=== PATIENT | female | born 1940 | race Caucasian/White ===

== ENCOUNTER → 2016-07-12 | Outpatient (CLI) | payer BC, MEDICARE ==
--- NOTE | 2016-07-12 10:43 | ECHOF ---
Referral Reason:R07.9 chest pain R06.02 sob MEASUREMENTS -------- HEIGHT: 157.5 cm WEIGHT: 70.8 kg BP: 127/80 RVIDd: 2.7 cm (< 3.3) IVSd: 1.0 cm (0.6 - 1.1) LVIDd: 4.3 cm (3.9 - 5.3) LVPWd: 0.7 cm (0.6 - 1.1) IVSs: 1.2 cm LVIDs: 2.8 cm LVPWs: 1.4 cm LAESV Index (A-L): 20.87 ml/m Ao Diam: 2.6 cm (2.0 - 3.7) AV Cusp: 1.7 cm (1.5 - 2.6) LA Diam: 2.8 cm (2.7 - 3.8) MV EXCURSION: 14.577 mm (> 18.000) MV EF SLOPE: 79 mm/s (70 - 150) EPSS: 0.5 cm MV E Sam: 0.52 m/s MV DecT: 281 ms MV A Sam: 0.83 m/s MV E/A Ratio: 0.62 RAP: 5.00 mmHg RVSP: 26.73 mmHg FINDINGS -------- Sinus rhythm. This was a technically adequate study. There is mild concentric left ventricular hypertrophy. Overall left ventricular systolic function is normal with, an EF between 55 - 60 %. The right ventricle is normal in size. Normal LA size by volume 22+/-6 ml/m2. The right atrial size is normal. There is mild aortic valve sclerosis. There is no evidence of aortic regurgitation. Mild mitral annular calcification present. Mild mitral regurgitation is present. Mild tricuspid regurgitation present. There is no evidence of pulmonary hypertension. The right ventricular systolic pressure, as measured by Doppler, is 26.73mmHg. There is no pulmonic regurgitation present. The aortic root size is normal. There is no pericardial effusion. CONCLUSIONS -------- 1. There is mild concentric left ventricular hypertrophy. 2. Overall left ventricular systolic function is normal with, an EF between 55 - 60 %. 3. There is mild aortic valve sclerosis. 4. Mild mitral annular calcification present. 5. Mild mitral regurgitation is present. 6. Mild tricuspid regurgitation present. 7. There is no evidence of pulmonary hypertension. 8. The right ventricular systolic pressure, as measured by Doppler, is 26.73mmHg. 9. There is no pericardial effusion. FACEPIECE LINE SUPERVISOR: Latoya Noonan RDCS
--- NOTE | 2016-07-12 11:21 | EST ---
DATE OF SERVICE: 07/12/2016 AGE: 75Y SEX: F HT: 5'2" WT: 156 lbs. Protocol Mike: X Other: Stress Stage: 1 Dur. of Exercise: 3:00 *Heart Rate Blood Pressure *Rest: 75 Rest: 154/78 * *Max. Achieved: 130 Maximum BP: 173/68 85% PMHR: 122 100% PMHR: 144 *METS: 4.6 INDICATIONS: Chest pain. MEDICATIONS: Metformin, atorvastatin, Glipizide, aspirin. Baseline EKG revealed normal sinus rhythm without significant ST-T changes. There was some poor R-wave progression over precordial leads. Patient walked on standard Mike protocol for 3 minutes, achieved a maximum heart rate of 130 beats per minute. Developed fatigue and shortness of breath and therefore stress test was stopped. There was a lot of artifact, but there was no evidence of any ST segment changes to indicate ischemia. By EKG criteria, this is a negative stress test with very limited exercise capacity. The nuclear scans, which are more pertinent, will be reported by radiologist.
--- NOTE | 2016-07-12 11:46 | NM ---
EXAMINATION TYPE: NM stress cardiolite complete DATE OF EXAM: 07/12/2016 11:32 AM COMPARISON: NONE HISTORY: Precordial chest pain TECHNIQUE: After the intravenous administration of 11.0 mCi Tc 99m Sestamibi - Rest images obtained 45 minutes post injection. The patient exercised using a JIGNA protocol and 1 minute prior to peak exercise was injected with 27.0 mCi Tc 99m Sestamibi - Stress images obtained 10 minutes post injecti on. FINDINGS: Targeted heart rate was achieved during performance of the study. Review of stress and rest SPECT anton ges demonstrates no distinct perfusion abnormality. Gated analysis shows normal wall motion with an estimated left ventricular ejection fraction of 39 %. IMPRESSION: No scintigraphic evidence for reversible ischemia
== END | disposition home or self-care (01) ==
LOC: RADNMMAIN 09:00
PROVIDERS: ATTEND Family Medicine
DX: R06.02 Shortness of breath (principal); R07.9 Chest pain, unspecified
CPT/HCPCS: 93017; 93306; 78452; A9500

== ENCOUNTER → 2022-04-06 | Outpatient (CLI) | payer OTHER, MEDICARE ==
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
== END | disposition home or self-care (01) ==
LOC: RADBDWWP 07:50
PROVIDERS: ATTEND Family Medicine
DX: Z13.820 Encounter for screening for osteoporosis (principal); M85.89 Other specified disorders of bone density and structure, multiple sites; Z78.0 Asymptomatic menopausal state
CPT/HCPCS: 77080

== ENCOUNTER 2022-10-31 07:23 | Inpatient (IN) | payer OTHER, MEDICARE ==
[2022-10-31] MEDS ORDERED: NALOXONE 0.4 MG/ML 1 ML VIAL IV PRN (08:22)
[2022-10-31] MEDS ORDERED: ACETAMINOPHEN TAB 325 MG TAB PO PRN (08:23)
[2022-10-31] MEDS ORDERED: HYDROcodone/APAP 5-325MG 1 EACH TAB PO PRN (08:23)
[2022-10-31] MEDS ORDERED: MORPHINE SULFATE 4 MG/ML SYRINGE IV PRN (08:23)
[2022-10-31] MEDS ORDERED: traMADol 50 MG TAB PO PRN (08:23)
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
[2022-10-31] MEDS ORDERED: DEXTROSE 50% SYRINGE 50 ML IVP PRN ×4 (08:37→11:38)
--- NOTE | 2022-10-31 09:15 | CT ---
EXAMINATION TYPE: CT lumbar spine wo con DATE OF EXAM: 10/31/2022 COMPARISON: Outside CT 09/26/2022 HISTORY: LUMBAR PAIN CT DLP: [address] of the lumbar spine was performed. Bone and soft tissue window settings are submitted as well as coronal and sagittal reconstructions. L1-L2: There is an acute superior endplate compression fracture of L1 with loss of height estimated a t 10-15%. There is a small paraspinal hematoma. 3 mm bony retropulsion noted. No involvement of the m iddle or posterior column. Moderate degenerative disc space narrowing. No disc herniation or central stenosis present. L2-L3: There is evidence of vacuum disc. Posterior disc bulge with mild effacement of ventral thecal sac. No evidence for central stenosis. Bilateral lateral recess stenosis is difficult to exclude. Fac et joint arthropathy with mild foraminal encroachment. L3-L4: Mild degenerative disc space narrowing. No significant disc bulge or herniation. No central st enosis. Mild facet joint arthropathy. No foraminal encroachment. L4-L5: Severe degenerative disc space narrowing and vacuum disks. Moderate broad-based posterior disc bulge greatest posterocentrally and to the left. There is resultant moderate central stenosis. There is hypertrophy of the ligamentum flavum and facet joint arthropathy. L5-S1: Moderate degenerative disc space narrowing. Posterior central disc bulge. Mild effacement vent ral thecal sac. Left lateral recess stenosis difficult to exclude. Moderate left foraminal encroachme nt. No significant right-sided foraminal encroachment. No paraspinal masses are identified. IMPRESSION: 1. Acute superior endplate compression fracture as discussed involving L1. 2. Multilevel degenerative disc disease. Moderate central stenosis at L4-5.
[2022-10-31 10:18] LABS: Basophils % (A) 0 %; Eosinophils # (A) 0.1 k/uL (0-0.7); Eosinophils % (A) 2 %; HCT 46.8 % (34.0-46.0); HGB 14.8 gm/dL (11.4-16.0); Lymphocytes # (A) 1.4 k/uL (1.0-4.8); Lymphocytes % (A) 20 %; MCH 32.3 pg (25.0-35.0); MCHC 31.6 g/dL (31.0-37.0); MCV 102.3 fL (80.0-100.0); Macrocytosis Slight; Mean Platelet Volume 8.3; Monocytes # (A) 0.4 k/uL (0-1.0); Monocytes % (A) 5 %; Neutrophils % (A) 72 %; Platelet Count 196 k/uL (150-450); RBC 4.57 m/uL (3.80-5.40); RDW 13.6 % (11.5-15.5)
[2022-10-31 10:32] LABS: ALT 15 U/L (4-34); AST 21 U/L (14-36); African American GFR (CKD) 78 (>60 ml/min/1.73 sqM); Albumin 4.1 g/dL (3.5-5.0); Alkaline Phosphatase 112 U/L (38-126); Anion Gap 12 mmol/L; Blood Urea Nitrogen 10 mg/dL (7-17); Calcium 9.3 mg/dL (8.4-10.2); Carbon Dioxide 23 mmol/L (22-30); Chloride 104 mmol/L (98-107); Glucose 145 mg/dL (74-99); Non-African American GFR(CKD) 68 (>60 ml/min/1.73 sqM); Potassium 4.3 mmol/L (3.5-5.1); Sodium 139 mmol/L (137-145); Total Bilirubin 0.6 mg/dL (0.2-1.3); Total Protein 7.2 g/dL (6.3-8.2)
--- NOTE | 2022-10-31 11:41 | P.CONS ---
History of Present Illness - Reason for Consult Preoperative clearance - History of Present Illness Patient underwent 82-year-old female I is being admitted for elective back surgery. Patient doesn't have any significant cardiac history doesn't have any history of CHF presently doesn't have any chest pain EKG did not show any significant ST-T wave changes. Patient only medical problems are diabetes aisha itus, hypertension and hyperlipidemia. REVIEW OF SYSTEMS: CONSTITUTIONAL: No fever, no malaise, no fatigue. HEENT: No recent visual problems or hearing problems. Denied any sore throat. CARDIOVASCULAR: No chest pain, orthopnea, PND, no palpitations, no syncope. PULMONARY: No shortness of breath, no cough, no hemoptysis. GASTROINTESTINAL: No diarrhea, no nausea, no vomiting, no abdominal pain. NEUROLOGICAL: No headaches, no weakness, no numbness. HEMATOLOGICAL: Denies any bleeding or petechiae. GENITOURINARY: Denies any burning micturition, frequency, or urgency. MUSCULOSKELETAL/RHEUMATOLOGICAL: Denies any joint pain, swelling, or any muscle pain. ENDOCRINE: Denies any polyuria or polydipsia. The rest of the 14-point review of systems is negative. PHYSICAL EXAMINATION: GENERAL: The patient is alert and oriented x3, not in any acute distress. Well developed, well nourished. HEENT: Pupils are round and equally reacting to light. EOMI. No scleral icterus. No conjunctival pallor. Normocephalic, atraumatic. No pharyngeal erythema. No thyromegaly. CARDIOVASCULAR: S1 and S2 present. No murmurs, rubs, or gallops. PULMONARY: Chest is clear to auscultation, no wheezing or crackles. ABDOMEN: Soft, nontender, nondistended, normoactive bowel sounds. No palpable organomegaly. MUSCULOSKELETAL: Deferred to orthopedic surgery EXTREMITIES: No cyanosis, clubbing, or pedal edema. NEUROLOGICAL: Gross neurological examination did not reveal any focal deficits. SKIN: No rashes. Assessment and plan Preoperative clearance: Patient is low operative risk for lumbar fusion surgery. Considering her age avoid opiates, benzodiazepines barbiturates and anticholinergic medications in the perioperative and postoperative period -Hyperlipidemia: Resume on statin next Type 2 diabetes mellitus: Sliding scale insulin hold off oral hypoglycemic agents -Hypertension: Hold off on lisinopril to avoid perioperative hypotension DVT prophylaxis: As per primary service Past Medical History Past Medical History: Cancer, Diabetes Mellitus History of Any Multi-Drug Resistant Organisms: None Reported Past Surgical History: Bowel Resection Past Psychological History: No Psychological Hx Reported Smoking Status: Never smoker Past Alcohol Use History: None Reported Past Drug Use History: None Reported Medications and Allergies Home Medications Medication Instructions Recorded Confirmed Type Atorvastatin [Lipitor] 40 mg PO HS 10/31/22 10/31/22 History Famotidine [Pepcid] 20 mg PO BID 10/31/22 10/31/22 History HYDROcodone/APAP 5-325MG [[place] 1 tab PO Q6H PRN 10/31/22 10/31/22 History 5-325] Pioglitazone [Actos] 15 mg PO DAILY 10/31/22 10/31/22 History glipiZIDE XL [Glucotrol Xl] 5 mg PO BID 10/31/22 10/31/22 History lisinopriL [Zestril] 10 mg PO DAILY 10/31/22 10/31/22 History metFORMIN HCL ER [Glucophage XR] 1,000 mg PO W/SUPPER 10/31/22 10/31/22 History Allergies Allergy/AdvReac Type Severity Reaction Status Date / Time No Known Allergies Allergy Verified 10/31/22 10:59 Physical Exam Vitals: Vital Signs Temp Pulse Resp BP Pulse Ox 10/31/22 07:35 98.2 F 74 18 140/74 100 Intake and Output 10/30/22 10/31/22 10/31/22 22:59 06:59 14:59 Other: Weight 69.853 kg Results CBC & Chem 7: 10/31/22 08:29 10/31/22 08:29 Labs: Abnormal Lab Results - Last 24 Hours (Table) 10/31/22 10/31/22 Range/Units 08:29 08:29 Hct 46.8 H (34.0-46.0) % MCV 102.3 H (80.0-100.0) fL Glucose 145 H (74-99) mg/dL
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
[2022-10-31 12:08] LABS: Glucose,Whole Blood 103 mg/dL (70-110)
[2022-10-31] MEDS: INSULIN ASPART (NovoLOG) 100 UNIT/ML VIAL SQ SCH ×3 (12:44→22:23)
[2022-10-31] MEDS: oxyCODONE-APAP 5-325MG 1 EACH TAB PO PRN ×2 (12:51→22:22)
[2022-10-31 17:25] LABS: Glucose,Whole Blood 233 mg/dL (70-110)
[2022-10-31] MEDS: FAMOTIDINE 20 MG TAB PO SCH (20:31)
[2022-10-31] MEDS: ATORVASTATIN 40 MG TAB PO SCH (20:31)
[2022-10-31 22:44] LABS: Glucose,Whole Blood 195 mg/dL (70-110)
[2022-11-01 06:30] LABS: Glucose,Whole Blood 123 mg/dL (70-110)
[2022-11-01] MEDS: INSULIN ASPART (NovoLOG) 100 UNIT/ML VIAL SQ SCH ×4 (06:33→23:23)
--- NOTE | 2022-11-01 07:44 | XR ---
EXAMINATION TYPE: XR chest 1V DATE OF EXAM: 11/01/2022 HISTORY: Shortness of breath. COMPARISON: 06/14/2015 TECHNIQUE: Single view of the chest is submitted. FINDINGS: Demonstrated are scattered senescent parenchymal change. Patchy density left lateral lung base may reflect atelectasis or pneumonia. The heart is stable. Hilar and mediastinal structures are within normal limits. Degenerative changes are seen of the dorsal spine. IMPRESSION: 1. Patchy density left lateral lung base may reflect atelectasis or pneumonia.
[2022-11-01] MEDS ORDERED: TRANEXAMIC ACID 1,000 MG in SODIUM CHLORIDE 0.9% 100 ML IVPB ONE ×4 (08:35)
[2022-11-01] MEDS: FAMOTIDINE 20 MG TAB PO SCH (10:31)
[2022-11-01] MEDS: PIOGLITAZONE 15 MG TAB PO SCH (10:31)
[2022-11-01 11:31] LABS: Glucose,Whole Blood 138 mg/dL (70-110)
[2022-11-01 15:02] LABS: Glucose,Whole Blood 130 mg/dL (70-110)
[2022-11-01] MEDS ORDERED: LACTATED RINGERS 1,000 ML IV ONE ×3 (15:10→17:55)
[2022-11-01] MEDS ORDERED: ONDANSETRON 4 MG/2 ML VIAL ONE (15:23)
[2022-11-01] MEDS ORDERED: DEXAMETHASONE SOD PHOSPHATE 4 MG/ML 1 ML VIAL IVP ONE (15:28)
[2022-11-01] MEDS ORDERED: ONDANSETRON 4 MG/2 ML VIAL IVP ONE ×2 (15:29→18:30)
--- NOTE | 2022-11-01 15:31 | P.PN ---
Progress Note - Text Progress Note Date: 11/01/22 Spine Surgery Clinical and Risk Review Nohelia Francis is a 82-year-old female presenting for evaluation of severe low back pain after fall from standing. It was my pleasure to have seen and examined Nohelia Francis. In our visit today we have had a chance to go over subjective complaints, physical examination findings and treatments including the natural course history without intervention and various interventional options. The patients imaging demonstrates vertebral compression fracture with burst component L1 50% compression with kyphotic deformity. On physical exam, Nohelia Francis demonstrates severe low back pain and difficulty with activities of daily living secondary to pain and inability to ambulate. I have explained to the patient that as their condition progresses it will cause further neurological deficits and eventual paralysis. Based on the patients imaging, physical exam, and the rapid progression and disabling nature of their symptoms, at this time I recommend surgery in the form or a: open treatment L1 fracture with stabilization. I discussed the risk and benefits of this procedure at length with Nohelia Francis. The patient her and son at bedside agreed to considered pursuing the procedure abovementioned. Prior to surgery, she should follow up with her PCP (Cardio, ID, IM etc) for clearance. Questions were invited and answered, and the patient wishes to proceed as outlined below. Currently, I am recommendin. open treatment L1 fracture with stabilization T12 L2 2. Follow up with PCP for surgical clearance 3. Review of surgical risks and benefits as well as an educational packet on the proposed surgical procedure. Risks: All surgical procedures come with inherent risks, including those related to positioning, anesthesia, intraoperative findings, and postoperative complications. It is important to understand that surgery does not come with any guarantee of a successful outcome as complications and adverse events are always possible. The patient was given a handout in office today discussing the surgical procedure and risks associated with the intervention, both of which were discussed with the patient. These risks include but are not limited to the following: * Experiencing same, different or even worse symptoms in back, neck, arms, or legs compared to before surgery. * Requiring further surgery or other forms of treatment presently or at some time in the future at same or other levels of the intended spine surgery. * On an extreme but fortunately relatively rare basis severe complication such as blindness, stroke, heart attack, temporary and/or permanent nerve injury, paralysis, coma, or may occur, sometimes without known explanation. * Surgical complications may include but are not limited to risk of infection, fluid accumulation in the surgical dissection site, including a seroma or hematoma, that requires additional surgery, wound drainage, bleeding, new numbness or weakness, vision changes/loss, spinal fluid leakage, non-healing and/or infected incision, headaches, difficulty or inability to swallow, hoarseness, hemopneumothorax, pneumothorax, impotence, retrograde ejaculation, vaginal dryness; injury to nerves, spinal cord, blood vessels, lymphatics or other vital organs (i.e., bowel injury, injury to the great vessels); heterotopic bone formation; complications related to the hardware such as screws, rods, cages including misplaced hardware, device failure, instrumentation at the wrong spine level, hardware fracture/breakage, or hardware loosening; vertebral failure of the spinal column above or below the newly placed hardware; retained surgical instrumentations or devices and the need for further surgery. * Medical risks of the planned spine surgery include but are not limited to generalized Infections to the whole body or local areas outside of the surgical site (sepsis), heart attack, bleeding, anaphylaxis, meningitis, sei zure, epilepsy, hearing loss, burn blevins, laceration of the head or other areas of the body, bruising, hypersensitivity of the skin, bladder over distension; allergic reaction; shoulder injury related to positioning; fat, blood and air clots to other areas of the body like heart, lungs, brain; failure of internal organs such as lungs, kidneys, liver and excessive bleeding. If blood transfusions are necessary, note that transfusions may cause intolerance reactions such as anaphylaxis or other complex reactions. * Despite best efforts, the results of spine surgery might not heal in terms of bone, soft tissues such as skin, fascia, ligaments, and joints. Additionally, in order to achieve best possible results, spine surgery may be carried out beyond the initially planned levels and involve decompression, fusion including insertion of hardware at levels other than the original intended area of surgical interest change some portions of the procedure in order to ensure the best possible outcomes. * With spine surgery and spinal fusion, there are different off label uses of instrumentation (devices, implants and hardware) as well as biological substances (bone morphogenic proteins, demineralized bone matrix) as well as using extra bone from allograft sources (i.e. cadaver bone) or autograft (iliac crest bone, ribs, or the spine itself). The patient has been given information about these practices and their inherent risks and benefits. The patient has had a chance to review all the listed information, has been given print outs detailing this information, and has had all his/her questions answered to their satisfaction. It was my pleasure to have seen and examined Nohelia Francis. In our visit today we have had a chance to go over my understanding of our patient's current condition, the natural course history without intervention and various interventional options. Questions were invited and answered, and the patient wishes to proceed as outlined above. I have seen and examined the patient for 25 minutes and we have spent more than 50% of the time in repeat and detailed counseling about the patient's condition, its natural course history with out and as much as can be predicted with surgery and re-review of various surgical treatment options. In conclusion, Nohelia Francis and her son and at bedside requested we proceed with the above suggested surgery and are willing to accept risks and limitations of the suggested surgery as nature of the disease process and our b est attempts at treatment for the condition. Thank you again for allowing us to be part of your patient's care. Please don't hesitate to contact me if you have any further questions. Signed and authenticated by: Sixto Garcia [facility] [address] [place] [address] [address]
[2022-11-01] MEDS ORDERED: PHENYLEPHRINE-0.9% NACL SYG 1,000 MCG/10 ML SYRINGE ONE (15:43)
[2022-11-01] MEDS ORDERED: ceFAZolin 1,000 MG VIAL ONE (15:43)
[2022-11-01] MEDS ORDERED: SODIUM CHLORIDE 0.9% 100 ML BAG ONE (15:43)
[2022-11-01] MEDS ORDERED: KETAMINE 10 MG/ML 20 ML VIAL ONE (15:43)
[2022-11-01] MEDS ORDERED: LIDOCAINE 2% INJ 20 MG/ML (2 ML VIAL) ONE (15:43)
[2022-11-01] MEDS ORDERED: TRANEXAMIC 1,000 MG/100ML-NACL PREMIX BAG ONE (15:43)
[2022-11-01] MEDS ORDERED: ESMOLOL 100 MG/10 ML VIAL ONE (15:43)
[2022-11-01] MEDS ORDERED: SUCCINYLCHOLINE CHLORIDE 200 MG/10 ML VIAL IV ONE (15:43)
[2022-11-01] MEDS ORDERED: NEOSTIGMINE 1 MG/ML 10 ML VIAL ONE (15:43)
[2022-11-01] MEDS ORDERED: PROPOFOL 10 MG/ML 20 ML VIAL IV ONE (15:43)
[2022-11-01] MEDS ORDERED: GLYCOPYRROLATE 0.2 MG/ML 2 ML VIAL ONE (15:43)
[2022-11-01] MEDS ORDERED: fentaNYL (PF) 50 MCG/ML 2 ML AMP ONE (15:43)
[2022-11-01] MEDS ORDERED: ROCURONIUM 10 MG/ML (5 ML VIAL) IV ONE (15:43)
[2022-11-01] MEDS ORDERED: SODIUM CHLORIDE 0.9% 50 ML with ceFAZolin 2 GM IV ONE ×2 (15:48)
[2022-11-01] MEDS ORDERED: BUPIVACAINE (PF) 0.25% 30 ML VIAL SQ ONE (16:20)
[2022-11-01] MEDS ORDERED: LIDOCAINE 2%-EPI 1:100,000 20 ML VIAL SQ ONE (16:22)
[2022-11-01] MEDS ORDERED: THROMBIN (BOVINE) 5,000 UNIT VIAL MISCELLANE ONE (16:23)
[2022-11-01] MEDS ORDERED: MAGNESIUM HYDROXIDE 2,400 MG/30 ML CUP PO PRN (16:24)
[2022-11-01] MEDS ORDERED: IOPAMIDOL M200 10 ML VIAL MISCELLANE ONE (16:24)
[2022-11-01] MEDS ORDERED: SENNOSIDES-DOCUSATE SODIUM 1 EACH TAB PO PRN (16:24)
[2022-11-01 18:28] LABS: Glucose,Whole Blood 217 mg/dL (70-110)
[2022-11-01] MEDS ORDERED: INSULIN ASPART (NovoLOG) 100 UNIT/ML VIAL SQ ONE (18:30)
[2022-11-01] MEDS ORDERED: HYDROmorphone 0.5 MG/0.5 ML SYRINGE IVP ONE ×2 (18:30→18:50)
--- NOTE | 2022-11-01 19:59 | P.PN ---
Subjective Progress Note Date: 11/01/22 Patient underwent 82-year-old female I is being admitted for elective back surgery. Patient doesn't have any significant cardiac history doesn't have any history of CHF presently doesn't have any chest pain EKG did not show any significant ST-T wave changes. Patient only medical problems are diabetes me llitus, hypertension and hyperlipidemia. 11/01/2022 Patient is evaluated today sitting up in bed. No acute complaints overnight. Pending elective back surgery today. New labs today showing hemoglobin A1C 7.5 and blood glucose of 217. Hemodynamically stable. REVIEW OF SYSTEMS: CONSTITUTIONAL: No fever, no malaise, no fatigue. HEENT: No recent visual problems or hearing problems. Denied any sore throat. CARDIOVASCULAR: No chest pain, orthopnea, PND, no palpitations, no syncope. PULMONARY: No shortness of breath, no cough, no hemoptysis. GASTROINTESTINAL: No diarrhea, no nausea, no vomiting, no abdominal pain. NEUROLOGICAL: No headaches, no weakness, no numbness. The rest of the 14-point review of systems is negative. PHYSICAL EXAMINATION: GENERAL: The patient is alert and oriented x3, not in any acute distress. Well developed, well nourished. HEENT: Pupils are round and equally reacting to light. EOMI. No scleral icterus. No conjunctival pallor. Normocephalic, atraumatic. No pharyngeal erythema. No thyromegaly. CARDIOVASCULAR: S1 and S2 present. No murmurs, rubs, or gallops. PULMONARY: Chest is clear to auscultation, no wheezing or crackles. ABDOMEN: Soft, nontender, nondistended, normoactive bowel sounds. No palpable organomegaly. MUSCULOSKELETAL: Deferred to orthopedic surgery EXTREMITIES: No cyanosis, clubbing, or pedal edema. NEUROLOGICAL: Gross neurological examination did not reveal any focal deficits. SKIN: No rashes. Assessment and plan Preoperative clearance: Patient is low operative risk for lumbar fusion surgery. Considering her age avoid opiates, benzodiazepines barbiturates and anticholinergic medications in the perioperative and postoperative period. Patient is pending surgical intervention today. -Hyperlipidemia: -Type 2 diabetes mellitus: Sliding scale insulin hold off oral hypoglycemic agents, scheduled insulin added for improved glycemic control. -Hypertension: lisinopril being held; blood pressure elevated and likely lisin opril can be resumed postoperatively. DVT prophylaxis: As per primary service Gi prophylaxis: Pepcid Full Code The impression and plan of care has been dictated by Anette Mark, Nurse Practitioner as directed. Dr. Jon MD I have performed a history and physical examination and medical decision making of this patient, discussed the same with the dictator, and agree with the dictators assessment and plan as written, documented as a scribe. Based on total visit time, I have performed more than 50% of this visit. Objective - Vital Signs Vital signs: Vital Signs Temp 97.1 F L 11/01/22 18:04 Pulse 74 11/01/22 19:19 Resp 16 11/01/22 19:19 BP 155/92 11/01/22 19:19 Pulse Ox 100 11/01/22 19:19 FiO2 Intake & Output 11/01/22 11/01/22 11/02/22 06:59 18:59 06:59 Intake Total 2100 Output Total 100 Balance 2000 Weight 69.853 kg Intake: IV 2100 Output: Estimated Blood Loss 100 Other: Voiding Method Toilet # Voids 1 - Labs CBC & Chem 7: 10/31/22 08:29 10/31/22 08:29 Labs: Abnormal Lab Results - Last 24 Hours (Table) 10/31/22 11/01/22 11/01/22 Range/Units 22:17 04:21 06:28 POC Glucose (mg/dL) 195 H 123 H (70-110) mg/dL Hemoglobin A1c 7.5 H (<=6.0) % 11/01/22 11/01/22 11/01/22 Range/Units 11:30 15:00 18:21 POC Glucose (mg/dL) 138 H 130 H 217 H (70-110) mg/dL Hemoglobin A1c (<=6.0) % Assessment and Plan Time with Patient: Less than 30
[2022-11-01] MEDS: ATORVASTATIN 40 MG TAB PO SCH (20:33)
[2022-11-01 21:01] LABS: Glucose,Whole Blood 222 mg/dL (70-110)
[2022-11-01] MEDS: HYDROmorphone 0.5 MG/0.5 ML SYRINGE IVP PRN (22:04)
--- NOTE | 2022-11-01 23:41 | CT ---
EXAMINATION TYPE: CT thor lumbar spine wo con CT DLP: 1211.2 mGycm, Automated exposure control for dose reduction was used. DATE OF EXAM: 11/01/2022 10:56 PM COMPARISON: CT lumbar spine 10/31/2022. CLINICAL INDICATION:Female, 82 years old with history of s/p T12-L2 stabilization L1 kyphoplasty; PHH , POST OP FUSION TECHNIQUE: Axial images of the thoracolumbar spine were obtained without contrast. Coronal and sagitt al reformats were performed. No contrast administered. FINDINGS: Postsurgical changes with bilateral pedicular screws and rods involving T12 and L2 with vertebral aug mentation changes. Hardware creates streak artifact which limits evaluation. This spans previously se en compression deformity of the L1 vertebral body with also vertebral augmentation changes demonstrat ed. There is now 25% height loss with 2 mm retropulsion. S-shaped scoliotic curvature Multilevel dege nerative disc disease of the thoracolumbar spine with disc space narrowing, endplate sclerosis, anter ior osteophytosis, and vacuum disc disease. No spondylolisthesis. Redemonstration of left L3 and L4 n ondisplaced transverse process fractures. Eccentric left disc bulge with ligament flavum buckling and bilateral facet arthropathy at L4-L5 causing [id number] central canal stenosis. Broad-based di sc bulge with mild effacement of the intrathecal sac at L5-S1. Mild to moderate bilateral neural fora deshaun stenosis at L4-L5 and L5-S1. No significant thoracic spine central canal or neural foraminal st enosis. Comment of right psoas hematoma measuring grossly 3.7 x 3.0 x 15.0 cm with surrounding trace fluid. P ostsurgical changes with soft tissue edema and gas within the posterior spinal soft tissues. There is associated skin connie. Small hiatal hernia. Bibasilar dependent subsegmental atelectasis. Atherosclerotic calcification of t he aorta and its branches. IMPRESSION: 1. Postsurgical changes from T12-L2 stabilization with L1 kyphoplasty for previously seen compressio n deformity. Hardware appears intact with appropriate alignment. Interval development of right psoas intramuscular hematoma. 2. Redemonstration of acute nondisplaced left L3 and L4 transverse process fractures. 3. Mild to moderate multilevel degenerative disc disease as described above.
[2022-11-02] MEDS: INSULIN ASPART (NovoLOG) 100 UNIT/ML VIAL SQ SCH ×9 (00:07→20:14)
[2022-11-02 06:34] LABS: Glucose,Whole Blood 222 mg/dL (70-110)
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
[2022-11-02] MEDS: oxyCODONE-APAP 5-325MG 1 EACH TAB PO PRN ×3 (09:46→21:33)
[2022-11-02] MEDS: lisinopriL 10 MG TAB PO SCH (09:46)
[2022-11-02] MEDS: PIOGLITAZONE 15 MG TAB PO SCH (09:46)
[2022-11-02] MEDS: FAMOTIDINE 20 MG TAB PO SCH (09:46)
[2022-11-02 09:48] LABS: African American GFR (CKD) 76 (>60 ml/min/1.73 sqM); Anion Gap 7 mmol/L; Blood Urea Nitrogen 11 mg/dL (7-17); Calcium 8.6 mg/dL (8.4-10.2); Carbon Dioxide 27 mmol/L (22-30); Chloride 98 mmol/L (98-107); Glucose 213 mg/dL (74-99); Non-African American GFR(CKD) 66 (>60 ml/min/1.73 sqM); Potassium 4.3 mmol/L (3.5-5.1); Sodium 132 mmol/L (137-145)
--- NOTE | 2022-11-02 11:03 | P.OP ---
Date of Procedure: 11/01/22 Preoperative Diagnosis: 1. L1 BURST COMPRESSION FRACTURE WITH ANTERIOR WEDGING 50% 2. LOW BACK PAIN 3. DEBILITY SECONDARY TO COMORBID CONDITIONS AND FRACTURE 4. S/P FALL Postoperative Diagnosis: 1. L1 BURST COMPRESSION FRACTURE WITH ANTERIOR WEDGING 50% 2. LOW BACK PAIN 3. DEBILITY SECONDARY TO COMORBID CONDITIONS AND FRACTURE 4. S/P FALL Procedure(s) Performed: 1. OPEN TREATMENT AND REDUCTION L1 FRACTURE (49244) 2. STABILIZATION T12-L2 (58121) 3. INSERTION OF INTRAVERTEBRAL BODY DEVICE, SPINE WILVER L1 WITH REDUCTION (15214) 4. USE OF [employer] NAVIGATION FOR SCREW PLACEMENT (34826) USE OF IONM Implants: -Adeel [place] screw and mimi system -Spine wilver x1 -Cement Anesthesia: GETA Surgeon: Sixto Roca Charhouse Worker #1: Linda Jones Estimated Blood Loss (ml): 100 IV fluids (ml): 1,100 Urine output (ml): 320 Pathology: other (L1 vertebral body) Condition: stable Disposition: PACU Indications for Procedure: Nohelia Francis is a 82-year-old female presenting for evaluation of severe low back pain after fall from standing. It was my pleasure to have seen and examined Nohelia Francis. In our visit today we have had a chance to go over subjective complaints, physical examination findings and treatments including the natural course history without intervention and various interventional options. The patients imaging demonstrates vertebral compression fracture with burst component L1 50% compression with kyphotic deformity. On physical exam, Nohelia Francis demonstrates severe low back pain and difficulty with activities of daily living secondary to pain and inability to ambulate. I have explained to the patient that as their condition progresses it will cause further neurological deficits and eventual paralysis. Based on the patients imaging, physical exam, and the rapid progression and disabling nature of their symptoms, at this time I recommend surgery in the form or a: open treatment L1 fracture with stabilization. I discussed the risk and benefits of this procedure at length with Nohelia Francis. The patient her and son at bedside agreed to considered pursuing the procedure abovementioned. Prior to surgery, she should follow up with her PCP (Cardio, ID, IM etc) for clearance. Questions were invited and answered, and the patient wishes to proceed as outlined below. Currently, I am recommendin. open treatment L1 fracture with stabilization T12 L2 Description of Procedure: ORIF L1, T12-L2 stabilization with L1 spine wilver (GILA, Pins) The patient was seen and examined in the preoperative area. All preoperative protocols were followed. Informed consent was obtained, risks and benefits of the procedure were discussed at length. Risks including bleeding infection damage to the surrounding tissue and risk of reoperation were discussed with the patient. Risk of anesthesia up to and including was discussed with the patient. These are outlined in the risk review. They were willing to accept these risks and all of the risks of surgery. The patient was given a weight- based dose of antibiotics in the form of 2 g Ancef. The patient was seen and evaluated by the anesthesia team who deemed them fit for surgery. The site was marked, the patient was willing to proceed with the procedure. The patient was transferred to the operative suite by the Department of anesthesia. They were then drifted off to sleep by the department anesthesia and GETA was performed. The patient tolerated this well. [Teran catheter was placed by nursing staff, atraumatically]. Once confirmation of lines and ventilation the patient was transferred to a [prone Sukumar table very carefully]. All bony prominences including wrists, elbows, axilla, chest, hips, and thighs, and feet were padded very well. Special attention was paid to the genitalia and these were padded accordingly. SCDs were placed on bilateral lower extremities and were connected. Arms were well padded and placed [on arm boards up and out in the 90/90 position]. Once in position, again we confirmed good ventilation capabilities and that lines were running appropriately. The patient's thoracolumbar spine was then exposed. 1010s were placed outlining the incision site. Standard alcohol was used to clean the incision site and allowed to dry. C-arm was used to needle localize and then biomark the patient and confirm level for incision which was marked with a skin marker. Operative briefing was performed with all teams and everyone in agreement to proceed. The patient was then prepped and draped in a normal sterile fashion. Timeout was then performed and all parties were in agreement with the procedure to be performed. Skin elian was made over the PSIS for the pins for the trackers; these were drilled into the PSIS stabilized and the track was secured to this. Z drape was placed and a 3D intraoperative Zhiem spin was taken of the area.. Once then was registered and confirmed to be accurate, a navigated Jamshidi and drill guide were used to target pedicles bilaterally at T12 and L2. Once targeted a wire was placed and the targeting device removed. Wires were then visualized under AP and lateral imaging confirmed good placement. Pedicles of L1 were then targeted bilaterally and wires placed for the Spine Wilver system. Drill was passed and a biopsy taken of the L1 vertebral body. The trial was then placed and confirmed under AP to be in good position on the left side, however the right side was unable to be accessed safely due to the size of the pedicle and this side was foregone for safety. Spine Wilver was then inserted and expanded showing good reduction of the fracture at L1 with height roman catholic. This was then filled with cement without extravasation, myelogram or arteriogram. We then navigated screws over wires into position in the levels indicated above. The screws were tested and all tested above 20 mA. AP and lateral confirmed good placement of screws. All screws were then cemented into position through the cement cannulas. The patient remained stable throughout cementation and there was no cement extravasation angiogram a myelogram. We then sized and selected rods for the area rods were then placed subfascially through the tulips of each screw. Set screws were then placed and all screws to secure the rods bilaterally. Set screws were then final tightened and tabs broken off the screws. Final imaging confirmed good placement of rods and screws, good reduction and stabilization.. We irrigated the wounds thoroughly with normal sterile saline. The deep fascia was closed with 0 Vicryl superficial subcu closed with 2-0 Vicryl and skin closed with skin connie the wound edges approximated very well. wounds were then cleaned and sterilely dressed without dressings. The patient was transferred back to their hospital bed atraumatically. Patient was then awakened and extubated by the department of anesthesia having tolerated the procedure very well with no complications. They were transferred to the postoperative care unit in stable condition.
[2022-11-02 11:07] LABS: Basophils # (A) 0.02 X 10*3/uL (0.00-0.10); Basophils % (A) 0.2 %; Eosinophils # (A) 0 X 10*3/uL (0.04-0.35); Eosinophils % (A) 0 %; HCT 37.3 % (37.2-46.3); HGB 11.8 d/dL (12.0-15.0); Lymphocytes # (A) 0.53 X 10*3/uL (0.90-5.00); Lymphocytes % (A) 4.1 %; MCH 31.2 pg (27.0-32.0); MCHC 31.6 d/dL (32.0-37.0); MCV 98.7 FL (80.0-97.0); Mean Platelet Volume 10.8 FL (9.5-12.2); Monocytes # (A) 0.81 X 10*3/uL (0.20-1.00); Monocytes % (A) 6.3 %; NRBC Per 100 WBC 0 X 10*3/uL (0.00-0.01); Neutrophils # (A) 11.49 X 10*3/uL (1.80-7.70); Platelet Count 240 X 10*3/uL (140-440); RBC 3.78 X 10*6/uL (4.10-5.20); RDW 13.2 % (11.5-14.5)
[2022-11-02 11:34] LABS: Glucose,Whole Blood 195 mg/dL (70-110)
--- NOTE | 2022-11-02 11:57 | FL ---
Intraoperative/procedural fluoroscopic services were provided. Total fluoroscopy time is 37 seconds w ith a total of 3 submitted images to PACS. Please see the operative/procedural note for further brian wallis. DAP: 2845.58 [id number]
[2022-11-02 16:51] LABS: Glucose,Whole Blood 234 mg/dL (70-110)
--- NOTE | 2022-11-02 17:25 | P.PN ---
Subjective Progress Note Date: 11/02/22 Patient underwent 82-year-old female I is being admitted for elective back surgery. Patient doesn't have any significant cardiac history doesn't have any history of CHF presently doesn't have any chest pain EKG did not show any significant ST-T wave changes. Patient only medical problems are diabetes me llitus, hypertension and hyperlipidemia. 11/01/2022 Patient is evaluated today sitting up in bed. No acute complaints overnight. Pending elective back surgery today. New labs today showing hemoglobin A1C 7.5 and blood glucose of 217. Hemodynamically stable. 11/02/2022 Patient is evaluated today sitting up in the bed and patient is postoperative day #1 elective L1 kyphoplasty and T12 through L2 stabilization. Patient is reporting pain at about a 5 out of 10 postoperatively reports control with current pain management. Patient is a bowel regimen she is tolerating diet she has had not had any nausea or vomiting postoperatively. She is working physical therapy recommended home with home care and 24 7 supervision due to increased risk for falls. labs show a white count of 12.90 this is reactive to surgery, sodium of 132. Her blood glucose is 234. REVIEW OF SYSTEMS: CONSTITUTIONAL: No fever, no malaise, no fatigue. HEENT: No recent visual problems or hearing problems. Denied any sore throat. CARDIOVASCULAR: No chest pain, orthopnea, PND, no palpitations, no syncope. PULMONARY: No shortness of breath, no cough, no hemoptysis. GASTROINTESTINAL: No diarrhea, no nausea, no vomiting, no abdominal pain. NEUROLOGICAL: No headaches, no weakness, no numbness. The rest of the 14-point review of systems is negative. PHYSICAL EXAMINATION: GENERAL: The patient is alert and oriented x3, not in any acute distress. Well developed, well nourished. HEENT: Pupils are round and equally reacting to light. EOMI. No scleral icterus. No conjunctival pallor. Normocephalic, atraumatic. No pharyngeal erythema. No thyromegaly. CARDIOVASCULAR: S1 and S2 present. No murmurs, rubs, or gallops. PULMONARY: Chest is clear to auscultation, no wheezing or crackles. ABDOMEN: Soft, nontender, nondistended, normoactive bowel sounds. No palpable organomegaly. MUSCULOSKELETAL: Deferred to orthopedic surgery EXTREMITIES: No cyanosis, clubbing, or pedal edema. NEUROLOGICAL: Gross neurological examination did not reveal any focal deficits. SKIN: No rashes. Assessment and plan Postoperative day #1 elective L1 kyphoplasty and T12 through L2 stabilization for L1 vertebral body compression fracture patient has a TLSO brace at the bedside to use when she is up ambulating. -Hyponatremia probably hypovolemic -Hyperlipidemia: -Type 2 diabetes mellitus: Sliding scale insulin hold off oral hypoglycemic agents, scheduled insulin added for improved glycemic control. -Hypertension: lisinopril being held; blood pressure elevated and likely lisinopril can be resumed postoperatively. DVT prophylaxis: As per primary service Gi prophylaxis: Pepcid Full Code Plan Recommend to gently hydrate the patient and repeat labs in the morning to monitor the sodium level. Patient is given Levemir + scale and scheduled insulin for improved glycemic control and continue to monitor blood sugar before meals at bedtime. Since her discharge home tomorrow versus subacute rehab patient is a high-risk for falls. The impression and plan of care has been dictated by Anette Mark, Nurse Practitioner as directed. Dr. Jon MD I have performed a history and physical examination and medical decision making of this patient, discussed the same with the dictator, and agree with the dictators assessment and plan as written, documented as a scribe. Based on total visit time, I have performed more than 50% of this visit. Objective - Vital Signs Vital signs: Vital Signs Temp 98.0 F 11/02/22 14:24 Pulse 70 11/02/22 14:24 Resp 17 11/02/22 14:24 BP 145/83 11/02/22 14:24 Pulse Ox 95 11/02/22 14:24 FiO2 Intake & Output 11/01/22 11/02/22 11/02/22 18:59 06:59 18:59 Intake Total 2100 Output Total 100 Balance 2000 Intake: IV 2100 Output: Estimated Blood Loss 100 Other: Voiding Method Toilet Toilet Toilet # Voids 1 1 - Labs CBC & Chem 7: 11/02/22 07:51 11/02/22 07:51 Labs: Abnormal Lab Results - Last 24 Hours (Table) 11/01/22 11/01/22 11/01/22 Range/Units 04:21 18:21 21:00 WBC (4.50-10.00) X 10*3/uL RBC (4.10-5.20) X 10*6/uL Hgb (12.0-15.0) d/dL MCV (80.0-97.0) FL MCHC (32.0-37.0) d/dL Neutrophils # (1.80-7.70) X 10*3/uL Lymphocytes # (0.90-5.00) X 10*3/uL Eosinophils # (0.04-0.35) X 10*3/uL Sodium (137-145) mmol/L Glucose (74-99) mg/dL POC Glucose (mg/dL) 217 H 222 H (70-110) mg/dL Hemoglobin A1c 7.5 H (<=6.0) % 11/02/22 11/02/22 11/02/22 Range/Units 06:32 07:51 07:51 WBC 12.90 H (4.50-10.00) X 10*3/uL RBC 3.78 L (4.10-5.20) X 10*6/uL Hgb 11.8 L (12.0-15.0) d/dL MCV 98.7 H (80.0-97.0) FL MCHC 31.6 L (32.0-37.0) d/dL Neutrophils # 11.49 H (1.80-7.70) X 10*3/uL Lymphocytes # 0.53 L (0.90-5.00) X 10*3/uL Eosinophils # 0 L (0.04-0.35) X 10*3/uL Sodium 132 L (137-145) mmol/L Glucose 213 H (74-99) mg/dL POC Glucose (mg/dL) 222 H (70-110) mg/dL Hemoglobin A1c (<=6.0) % 11/02/22 11/02/22 Range/Units 11:32 16:50 WBC (4.50-10.00) X 10*3/uL RBC (4.10-5.20) X 10*6/uL Hgb (12.0-15.0) d/dL MCV (80.0-97.0) FL MCHC (32.0-37.0) d/dL Neutrophils # (1.80-7.70) X 10*3/uL Lymphocytes # (0.90-5.00) X 10*3/uL Eosinophils # (0.04-0.35) X 10*3/uL Sodium (137-145) mmol/L Glucose (74-99) mg/dL POC Glucose (mg/dL) 195 H 234 H (70-110) mg/dL Hemoglobin A1c (<=6.0) % Assessment and Plan Time with Patient: Less than 30
[2022-11-02] MEDS ORDERED: SODIUM CHLORIDE 0.9% 1,000 ML IV SCH (17:30)
[2022-11-02 20:08] LABS: Glucose,Whole Blood 189 mg/dL (70-110)
[2022-11-02] MEDS: INSULIN DETEMIR (LEVEMIR) 100 UNIT/ML SYR SQ SCH (20:14)
[2022-11-02] MEDS: ATORVASTATIN 40 MG TAB PO SCH (20:14)
[2022-11-03] MEDS: oxyCODONE-APAP 5-325MG 1 EACH TAB PO PRN (04:24)
[2022-11-03 05:35] LABS: Glucose,Whole Blood 181 mg/dL (70-110)
[2022-11-03] MEDS: INSULIN ASPART (NovoLOG) 100 UNIT/ML VIAL SQ SCH ×8 (05:37→20:45)
[2022-11-03 08:28] LABS: HCT 34.4 % (34.0-46.0); MCH 32.5 pg (25.0-35.0); MCHC 32.6 g/dL (31.0-37.0); MCV 99.8 fL (80.0-100.0); Mean Platelet Volume 8.6; Platelet Count 173 k/uL (150-450); RBC 3.45 m/uL (3.80-5.40); RDW 13.4 % (11.5-15.5); WBC 8.9 k/uL (3.8-10.6)
[2022-11-03 08:37] LABS: HGB 11.2 gm/dL (11.4-16.0)
[2022-11-03] MEDS: PIOGLITAZONE 15 MG TAB PO SCH (08:37)
[2022-11-03] MEDS: FAMOTIDINE 20 MG TAB PO SCH (08:37)
[2022-11-03] MEDS: lisinopriL 10 MG TAB PO SCH (08:37)
[2022-11-03 08:43] LABS: African American GFR (CKD) 88 (>60 ml/min/1.73 sqM); Anion Gap 4 mmol/L; Blood Urea Nitrogen 11 mg/dL (7-17); Calcium 8.1 mg/dL (8.4-10.2); Carbon Dioxide 30 mmol/L (22-30); Chloride 98 mmol/L (98-107); Glucose 177 mg/dL (74-99); Non-African American GFR(CKD) 77 (>60 ml/min/1.73 sqM); Potassium 4.2 mmol/L (3.5-5.1); Sodium 132 mmol/L (137-145)
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
[2022-11-03] MEDS: HYDROmorphone 0.5 MG/0.5 ML SYRINGE IVP PRN ×2 (11:01→16:34)
[2022-11-03 11:46] LABS: Glucose,Whole Blood 197 mg/dL (70-110)
[2022-11-03] MEDS ORDERED: FUROSEMIDE 10 MG/ML 4 ML VIAL IV STA (12:56)
--- NOTE | 2022-11-03 13:17 | XR ---
EXAMINATION TYPE: XR chest 2V DATE OF EXAM: 11/03/2022 10:11 AM COMPARISON: Chest radiographs from 11/01/2022 TECHNIQUE: XR chest 2V Frontal and lateral views of the chest. CLINICAL INDICATION:Female, 82 years old with history of hypoxia; FINDINGS: Lungs/Pleura: Increased densities project over the spine on lateral view. There is no evidence of ple ural effusion, or pneumothorax. Pulmonary vascularity: Unremarkable. Heart/mediastinum: Cardiomediastinal silhouette is unremarkable. Musculoskeletal: No acute osseous pathology. There is lower spine fixation hardware is present. IMPRESSION: Airspace opacities projecting the heart correlate for aspiration and/or pneumonia.
--- NOTE | 2022-11-03 15:44 | P.PN ---
Subjective Progress Note Date: 11/03/22 Patient underwent 82-year-old female I is being admitted for elective back surgery. Patient doesn't have any significant cardiac history doesn't have any history of CHF presently doesn't have any chest pain EKG did not show any significant ST-T wave changes. Patient only medical problems are diabetes me llitus, hypertension and hyperlipidemia. 11/01/2022 Patient is evaluated today sitting up in bed. No acute complaints overnight. Pending elective back surgery today. New labs today showing hemoglobin A1C 7.5 and blood glucose of 217. Hemodynamically stable. 11/02/2022 Patient is evaluated today sitting up in the bed and patient is postoperative day #1 elective L1 kyphoplasty and T12 through L2 stabilization. Patient is reporting pain at about a 5 out of 10 postoperatively reports control with current pain management. Patient is a bowel regimen she is tolerating diet she has had not had any nausea or vomiting postoperatively. She is working physical therapy recommended home with home care and 24 7 supervision due to increased risk for falls. labs show a white count of 12.90 this is reactive to surgery, sodium of 132. Her blood glucose is 234. 11/03/22 Patient evaluated today sitting up in the bed patient is post operative day #2 elective L1 kyphoplasty and T12 through L2 stabilization. Patient is fatigued today. Had a chest xray showing airspace opacities correlating for aspiration and or pneumonia. Upon review of chest xray felt more likely to be CHF and patient is given a dose of IV lasix. Will follow up labs in the AM and also order for speech therapy and a procalcitonin level. Needs encouragement to use the incentive spirometer. Continues with the incentive spirometer. REVIEW OF SYSTEMS: CONSTITUTIONAL: No fever, no malaise, no fatigue. HEENT: No recent visual problems or hearing problems. Denied any sore throat. CARDIOVASCULAR: No chest pain, orthopnea, PND, no palpitations, no syncope. PULMONARY: No shortness of breath, no cough, no hemoptysis. GASTROINTESTINAL: No diarrhea, no nausea, no vomiting, no abdominal pain. NEUROLOGICAL: No headaches, no numbness, reports generalized weakness and back pain. The rest of the 14-point review of systems is negative. PHYSICAL EXAMINATION: GENERAL: The patient is alert and oriented x3, not in any acute distress. Well developed, well nourished. Pale. Fatigued. HEENT: Pupils are round and equally reacting to light. EOMI. No scleral icterus. No conjunctival pallor. Normocephalic, atraumatic. No pharyngeal erythema. No thyromegaly. CARDIOVASCULAR: S1 and S2 present. No murmurs, rubs, or gallops. PULMONARY: Chest is clear to auscultation, no wheezing or crackles. ABDOMEN: Soft, nontender, nondistended, normoactive bowel sounds. No palpable organomegaly. MUSCULOSKELETAL: Deferred to orthopedic surgery EXTREMITIES: No cyanosis, clubbing, or pedal edema. NEUROLOGICAL: Gross neurological examination did not reveal any focal deficits. Diffuse weakness. SKIN: No rashes. Assessment and plan Postoperative day #2 elective L1 kyphoplasty and T12 through L2 stabilization for L1 vertebral body compression fracture patient has a TLSO brace at the bedside to use when she is up ambulating. -Hyponatremia -Volume overload IV lasix x 1 given -Hyperlipidemia: -Type 2 diabetes mellitus: Sliding scale insulin hold off oral hypoglycemic agents, scheduled insulin added for improved glycemic control. -Hypertension: lisinopril being held; blood pressure elevated and likely lisinopril can be resumed postoperatively. DVT prophylaxis: As per primary service Gi prophylaxis: Pepcid Full Code Plan IV fluids discontinued patient is given a dose of IV lasix. Patient is given Levemir + scale and scheduled insulin for improved glycemic control and continue to monitor blood sugar before meals at bedtime. Encourage incentive spirometer 10 x an hour while awake. Recommend to continue to work with PT daily and up in the chair for meals and utilize the TLSO brace. Continue with pain management and bowel regimen. D/C home vs. subacute rehab. The impression and plan of care has been dictated by Anette Mark Nurse Practitioner as directed. Dr. Jon MD I have performed a history and physical examination and medical decision making of this patient, discussed the same with the dictator, and agree with the dictators assessment and plan as written, documented as a scribe. Based on total visit time, I have performed more than 50% of this visit. Objective - Vital Signs Vital signs: Vital Signs Temp 98.0 F 11/03/22 13:36 Pulse 87 11/03/22 13:36 Resp 18 11/03/22 13:36 BP 154/83 11/03/22 13:36 Pulse Ox 94 L 11/03/22 13:36 FiO2 Intake & Output 11/02/22 11/03/22 11/03/22 18:59 06:59 18:59 Other: Voiding Method Toilet Toilet # Voids 1 1 1 - Labs CBC & Chem 7: 11/03/22 07:03 11/03/22 07:03 Labs: Abnormal Lab Results - Last 24 Hours (Table) 11/02/22 11/02/22 11/03/22 Range/Units 16:50 20:04 05:32 RBC (3.80-5.40) m/uL Hgb (11.4-16.0) gm/dL Sodium (137-145) mmol/L Glucose (74-99) mg/dL POC Glucose (mg/dL) 234 H 189 H 181 H (70-110) mg/dL Calcium (8.4-10.2) mg/dL 11/03/22 11/03/22 11/03/22 Range/Units 07:03 07:03 11:45 RBC 3.45 L (3.80-5.40) m/uL Hgb 11.2 L D (11.4-16.0) gm/dL Sodium 132 L (137-145) mmol/L Glucose 177 H (74-99) mg/dL POC Glucose (mg/dL) 197 H (70-110) mg/dL Calcium 8.1 L (8.4-10.2) mg/dL Assessment and Plan Time with Patient: Less than 30
[2022-11-03 16:32] LABS: Glucose,Whole Blood 191 mg/dL (70-110)
[2022-11-03 20:04] LABS: Glucose,Whole Blood 213 mg/dL (70-110)
[2022-11-03] MEDS: INSULIN DETEMIR (LEVEMIR) 100 UNIT/ML SYR SQ SCH (20:44)
[2022-11-03] MEDS: ATORVASTATIN 40 MG TAB PO SCH (20:44)
[2022-11-03] MEDS: HEPARIN SODIUM,PORCINE 5,000 UNIT/ML 1 ML VIAL SQ SCH (20:45)
[2022-11-04 05:29] LABS: Glucose,Whole Blood 158 mg/dL (70-110)
[2022-11-04] MEDS: INSULIN ASPART (NovoLOG) 100 UNIT/ML VIAL SQ SCH ×8 (06:49→20:13)
[2022-11-04 07:52] LABS: Sodium 133 mmol/L (137-145)
[2022-11-04 07:53] LABS: African American GFR (CKD) >90 (>60 ml/min/1.73 sqM); Anion Gap 6 mmol/L; Blood Urea Nitrogen 11 mg/dL (7-17); Calcium 8.2 mg/dL (8.4-10.2); Carbon Dioxide 32 mmol/L (22-30); Chloride 95 mmol/L (98-107); Glucose 158 mg/dL (74-99); Non-African American GFR(CKD) 81 (>60 ml/min/1.73 sqM); Potassium 3.6 mmol/L (3.5-5.1)
[2022-11-04] MEDS: HEPARIN SODIUM,PORCINE 5,000 UNIT/ML 1 ML VIAL SQ SCH ×2 (08:26→20:14)
[2022-11-04] MEDS: PIOGLITAZONE 15 MG TAB PO SCH (08:26)
[2022-11-04] MEDS: lisinopriL 10 MG TAB PO SCH (08:26)
[2022-11-04] MEDS: FAMOTIDINE 20 MG TAB PO SCH (08:27)
[2022-11-04] MEDS: oxyCODONE-APAP 5-325MG 1 EACH TAB PO PRN ×2 (08:40→20:12)
[2022-11-04] MEDS ORDERED: FUROSEMIDE 10 MG/ML 2 ML VIAL IV ONE (09:00)
[2022-11-04] MEDS ORDERED: FUROSEMIDE 20 MG TAB PO SCH (09:00)
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
[2022-11-04 11:21] LABS: Glucose,Whole Blood 161 mg/dL (70-110)
--- NOTE | 2022-11-04 14:17 | P.PN ---
Subjective Progress Note Date: 11/04/22 Patient underwent 82-year-old female I is being admitted for elective back surgery. Patient doesn't have any significant cardiac history doesn't have any history of CHF presently doesn't have any chest pain EKG did not show any significant ST-T wave changes. Patient only medical problems are diabetes me llitus, hypertension and hyperlipidemia. 11/01/2022 Patient is evaluated today sitting up in bed. No acute complaints overnight. Pending elective back surgery today. New labs today showing hemoglobin A1C 7.5 and blood glucose of 217. Hemodynamically stable. 11/02/2022 Patient is evaluated today sitting up in the bed and patient is postoperative day #1 elective L1 kyphoplasty and T12 through L2 stabilization. Patient is reporting pain at about a 5 out of 10 postoperatively reports control with current pain management. Patient is a bowel regimen she is tolerating diet she has had not had any nausea or vomiting postoperatively. She is working physical therapy recommended home with home care and 24 7 supervision due to increased risk for falls. labs show a white count of 12.90 this is reactive to surgery, sodium of 132. Her blood glucose is 234. 11/03/22 Patient evaluated today sitting up in the bed patient is post operative day #2 elective L1 kyphoplasty and T12 through L2 stabilization. Patient is fatigued today. Had a chest xray showing airspace opacities correlating for aspiration and or pneumonia. Upon review of chest xray felt more likely to be CHF and patient is given a dose of IV lasix. Will follow up labs in the AM and also order for speech therapy and a procalcitonin level. Needs encouragement to use the incentive spirometer. Continues with the incentive spirometer. 11/04/2022 Patient is postoperative day #3 elective L1 kyphoplasty and T12 through L2 sta bilization. Patient is resting in bed she does complain of significant pain and needs encouragement to get up into the chair and to ambulate. She did walk to the bathroom with assistance. She also needs encouragement on using the incentive spirometer at 10 times an hour. Patient was given a dose of IV Lasix due to hypoxia and and had improvement in her sodium level kidney function remained stable. Her calcitonin was only mildly elevated at 15 suggestive of chronic underlying infection. Chest x-ray did show possible aspiration or pneumonia. Speech therapy can evaluate this patient tomorrow prior to discharge. REVIEW OF SYSTEMS: CONSTITUTIONAL: No fever, no malaise, no fatigue. HEENT: No recent visual problems or hearing problems. Denied any sore throat. CARDIOVASCULAR: No chest pain, orthopnea, PND, no palpitations, no syncope. PULMONARY: Reports mild shortness of breath, no cough, no hemoptysis. GASTROINTESTINAL: No diarrhea, no nausea, no vomiting, no abdominal pain. NEUROLOGICAL: No headaches, no numbness, reports generalized weakness and back pain. The rest of the 14-point review of systems is negative. PHYSICAL EXAMINATION: GENERAL: The patient is alert and oriented x3, not in any acute distress. Well developed, well nourished. Pale. Fatigued. HEENT: Pupils are round and equally reacting to light. EOMI. No scleral icterus. No conjunctival pallor. Normocephalic, atraumatic. No pharyngeal erythema. No thyromegaly. CARDIOVASCULAR: S1 and S2 present. No murmurs, rubs, or gallops. PULMONARY: Chest is clear to auscultation, no wheezing or crackles. ABDOMEN: Soft, nontender, nondistended, normoactive bowel sounds. No palpable organomegaly. MUSCULOSKELETAL: Deferred to orthopedic surgery EXTREMITIES: No cyanosis, clubbing, or pedal edema. NEUROLOGICAL: Gross neurological examination did not reveal any focal deficits. Diffuse weakness. SKIN: No rashes. Assessment and plan Postoperative day #3 elective L1 kyphoplasty and T12 through L2 stabilization for L1 vertebral body compression fracture patient has a TLSO brace at the bedside to use when she is up ambulating. -Hyponatremia -Volume overload IV lasix x 1 given with a second dose of IV Lasix given today, patient will be transitioned to oral Lasix tomorrow. -Hyperlipidemia: -Type 2 diabetes mellitus: Sliding scale insulin hold off oral hypoglycemic agents, scheduled insulin added for improved glycemic control. -Hypertension: lisinopril being held; blood pressure elevated and likely lisinopril can be resumed postoperatively. DVT prophylaxis: As per primary service Gi prophylaxis: Pepcid Full Code Plan IV fluids discontinued patient is given a dose of IV lasix. With her second dose of IV Lasix given today. Patient is given Levemir + scale and scheduled insulin for improved glycemic control and continue to monitor blood sugar before meals at bedtime. Encourage incentive spirometer 10 x an hour while awake. Recommend to continue to work with PT daily and up in the chair for meals and utilize the TLSO brace. Continue with pain management and bowel regimen. She'll likely discharge to subacute rehab tomorrow on Saturday. The impression and plan of care has been dictated by Anette Mark, Nurse Practitioner as directed. Dr. Jon MD I have performed a history and physical examination and medical decision making of this patient, discussed the same with the dictator, and agree with the dictators assessment and plan as written, documented as a scribe. Based on total visit time, I have performed more than 50% of this visit. Objective - Vital Signs Vital signs: Vital Signs Temp 98.5 F 11/04/22 07:20 Pulse 87 11/04/22 07:20 Resp 17 11/04/22 07:20 BP 159/90 11/04/22 07:20 Pulse Ox 96 11/04/22 07:20 FiO2 Intake & Output 11/03/22 11/04/22 11/04/22 18:59 06:59 18:59 Other: Voiding Method Toilet # Voids 1 1 - Labs CBC & Chem 7: 11/03/22 07:03 11/04/22 06:32 Labs: Abnormal Lab Results - Last 24 Hours (Table) 11/03/22 11/03/22 11/03/22 Range/Units 07:03 07:03 07:03 RBC 3.45 L (3.80-5.40) m/uL Hgb 11.2 L D (11.4-16.0) gm/dL Sodium 132 L (137-145) mmol/L Chloride (98-107) mmol/L Carbon Dioxide (22-30) mmol/L Glucose 177 H (74-99) mg/dL POC Glucose (mg/dL) (70-110) mg/dL Calcium 8.1 L (8.4-10.2) mg/dL Procalcitonin 0.15 H (0.02-0.09) ng/mL 11/03/22 11/03/22 11/03/22 Range/Units 11:45 16:31 20:02 RBC (3.80-5.40) m/uL Hgb (11.4-16.0) gm/dL Sodium (137-145) mmol/L Chloride (98-107) mmol/L Carbon Dioxide (22-30) mmol/L Glucose (74-99) mg/dL POC Glucose (mg/dL) 197 H 191 H 213 H (70-110) mg/dL Calcium (8.4-10.2) mg/dL Procalcitonin (0.02-0.09) ng/mL 11/04/22 11/04/22 Range/Units 05:27 06:32 RBC (3.80-5.40) m/uL Hgb (11.4-16.0) gm/dL Sodium 133 L (137-145) mmol/L Chloride 95 L (98-107) mmol/L Carbon Dioxide 32 H (22-30) mmol/L Glucose 158 H (74-99) mg/dL POC Glucose (mg/dL) 158 H (70-110) mg/dL Calcium 8.2 L (8.4-10.2) mg/dL Procalcitonin (0.02-0.09) ng/mL Assessment and Plan Time with Patient: Less than 30
[2022-11-04 16:47] LABS: Glucose,Whole Blood 204 mg/dL (70-110)
[2022-11-04 20:01] LABS: Glucose,Whole Blood 158 mg/dL (70-110)
[2022-11-04] MEDS: INSULIN DETEMIR (LEVEMIR) 100 UNIT/ML SYR SQ SCH (20:12)
[2022-11-04] MEDS: ATORVASTATIN 40 MG TAB PO SCH (20:14)
[2022-11-04 20:36] VITALS: RESP 16
[2022-11-05 02:45] VITALS: TEMP 97.8
[2022-11-05 05:41] LABS: Glucose,Whole Blood 118 mg/dL (70-110)
[2022-11-05] MEDS: INSULIN ASPART (NovoLOG) 100 UNIT/ML VIAL SQ SCH ×4 (06:15→12:06)
[2022-11-05] MEDS: oxyCODONE-APAP 5-325MG 1 EACH TAB PO PRN (06:39)
[2022-11-05 08:40] VITALS: BP 129/77; PULSE 85
[2022-11-05] MEDS: HEPARIN SODIUM,PORCINE 5,000 UNIT/ML 1 ML VIAL SQ SCH (08:56)
[2022-11-05] MEDS: lisinopriL 10 MG TAB PO SCH (08:57)
[2022-11-05] MEDS: FAMOTIDINE 20 MG TAB PO SCH (08:57)
[2022-11-05] MEDS: PIOGLITAZONE 15 MG TAB PO SCH (08:57)
[2022-11-05] MEDS ORDERED: FUROSEMIDE 20 MG TAB PO SCH (09:00)
[2022-11-05 11:10] LABS: Blood Urea Nitrogen 12.6 mg/dL (9.0-27.0); Calcium 9.1 mg/dL (8.7-10.3); Carbon Dioxide 30.3 mmol/L (21.6-31.8); Chloride 93 mmol/L (96-109); Glucose 125 mg/dL (70-110); Potassium 3.5 mmol/L (3.5-5.5); Sodium 136 mmol/L (135-145)
[2022-11-05] MEDS ORDERED: POTASSIUM CHLORIDE ER 20 MEQ TAB.ER PO STA (11:19)
[2022-11-05 12:03] LABS: Glucose,Whole Blood 225 mg/dL (70-110)
--- NOTE | 2022-11-05 14:09 | P.PN ---
Subjective Progress Note Date: 11/05/22 Patient underwent 82-year-old female I is being admitted for elective back surgery. Patient doesn't have any significant cardiac history doesn't have any history of CHF presently doesn't have any chest pain EKG did not show any significant ST-T wave changes. Patient only medical problems are diabetes me llitus, hypertension and hyperlipidemia. 11/01/2022 Patient is evaluated today sitting up in bed. No acute complaints overnight. Pending elective back surgery today. New labs today showing hemoglobin A1C 7.5 and blood glucose of 217. Hemodynamically stable. 11/02/2022 Patient is evaluated today sitting up in the bed and patient is postoperative day #1 elective L1 kyphoplasty and T12 through L2 stabilization. Patient is reporting pain at about a 5 out of 10 postoperatively reports control with current pain management. Patient is a bowel regimen she is tolerating diet she has had not had any nausea or vomiting postoperatively. She is working physical therapy recommended home with home care and 24 7 supervision due to increased risk for falls. labs show a white count of 12.90 this is reactive to surgery, sodium of 132. Her blood glucose is 234. 11/03/22 Patient evaluated today sitting up in the bed patient is post operative day #2 elective L1 kyphoplasty and T12 through L2 stabilization. Patient is fatigued today. Had a chest xray showing airspace opacities correlating for aspiration and or pneumonia. Upon review of chest xray felt more likely to be CHF and patient is given a dose of IV lasix. Will follow up labs in the AM and also order for speech therapy and a procalcitonin level. Needs encouragement to use the incentive spirometer. Continues with the incentive spirometer. 11/04/2022 Patient is postoperative day #3 elective L1 kyphoplasty and T12 through L2 sta bilization. Patient is resting in bed she does complain of significant pain and needs encouragement to get up into the chair and to ambulate. She did walk to the bathroom with assistance. She also needs encouragement on using the incentive spirometer at 10 times an hour. Patient was given a dose of IV Lasix due to hypoxia and and had improvement in her sodium level kidney function remained stable. Her calcitonin was only mildly elevated at 15 suggestive of chronic underlying infection. Chest x-ray did show possible aspiration or pneumonia. Speech therapy can evaluate this patient tomorrow prior to discharge. 11/05/2022 Patient is postoperative day number 4 for elective L1 kyphoplasty at T12 through L2 stabilization. Patient is working with physical therapy currently evaluated today sitting up in the chair and does report improvement in her pain. Receiving a dose of IV Lasix yesterday with concerns over some mild volume overload and sodium today is now normal at 136. Kidney function remains stable with a BUN 12.6 and creatinine of 0.63. Blood glucose 200s. Patient is on co mbination of NovoLog sliding scale 2 units before meals at bedtime and also 5 units of Levemir at at bedtime which will be increased today up to 7 units if patient remains in the hospital overnight. Otherwise she can be discharged today if cleared by orthopedics. Medically patient is stable for discharge. Hemodynamically she is stable. REVIEW OF SYSTEMS: CONSTITUTIONAL: No fever, no malaise, no fatigue. HEENT: No recent visual problems or hearing problems. Denied any sore throat. CARDIOVASCULAR: No chest pain, orthopnea, PND, no palpitations, no syncope. PULMONARY: Reports no shortness of breath, no cough, no hemoptysis. GASTROINTESTINAL: No diarrhea, no nausea, no vomiting, no abdominal pain. NEUROLOGICAL: No headaches, no numbness, reports generalized weakness and back pain. The rest of the 14-point review of systems is negative. PHYSICAL EXAMINATION: GENERAL: The patient is alert and oriented x3, not in any acute distress. Well developed, well nourished. Pale. Fatigued. HEENT: Pupils are round and equally reacting to light. EOMI. No scleral icterus. No conjunctival pallor. Normocephalic, atraumatic. No pharyngeal erythema. No thyromegaly. CARDIOVASCULAR: S1 and S2 present. No murmurs, rubs, or gallops. PULMONARY: Chest is clear to auscultation, no wheezing or crackles. ABDOMEN: Soft, nontender, nondistended, normoactive bowel sounds. No palpable organomegaly. MUSCULOSKELETAL: Deferred to orthopedic surgery EXTREMITIES: No cyanosis, clubbing, or pedal edema. NEUROLOGICAL: Gross neurological examination did not reveal any focal deficits. Diffuse weakness. SKIN: No rashes. Assessment and plan Postoperative day #4 elective L1 kyphoplasty and T12 through L2 stabilization for L1 vertebral body compression fracture patient has a TLSO brace at the [facility] to use when she is up ambulating. -Hyponatremia resolved after given a dose of IV Lasix. -Volume overload IV lasix x 1 given with a second dose of IV Lasix given today, patient will be transitioned to oral Lasix which recommend to continue low dose of oral lasix on discharge. -Hyperlipidemia: -Type 2 diabetes mellitus: Sliding scale insulin hold off oral hypoglycemic agents, scheduled insulin added for improved glycemic control while inpatient and can transition back to oral diabetic medications on discharge -Hypertension: Blood pressure stable post surgical and recommend to resume vanessa nopril on discharge. DVT prophylaxis: As per primary service Gi prophylaxis: Pepcid Full Code Plan Patient is cleared medically for discharge. Patient continues with her TLSO brace and she has wearing when she is up ambulating and sitting up in the chair. Pain is being managed on oral pain medication. She is having bowel movements. She is urinating without difficulty. She is saturating well on room air. Patient's PCP office Dr. Whiteside is currently closing and patient will need to establish care with a new primary care provider on discharge. She has a recommended to see possibly Dr. Susana Rand or Dr. Light however she is encouraged to call around to see who is accepting new patients in her area. This was discussed with the patient and she is understanding. She'll be given scripts to repeat labs in 2-3 days. She will be set up with [facility] on discharge. The impression and plan of care has been dictated by Anette Mark, Nurse Practitioner as directed. Dr. Jon MD I have performed a history and physical examination and medical decision making of this patient, discussed the same with the dictator, and agree with the dictators assessment and plan as written, documented as a scribe. Based on total visit time, I have performed more than 50% of this visit. Objective - Vital Signs Vital signs: Vital Signs Temp 97.8 F 11/05/22 07:15 Pulse 85 11/05/22 07:15 Resp 16 11/05/22 07:15 BP 129/77 11/05/22 07:15 Pulse Ox 94 L 11/05/22 07:15 FiO2 Intake & Output 11/04/22 11/05/22 11/05/22 18:59 06:59 18:59 Output Total 800 Balance -800 Output: Urine 800 Other: Voiding Method Toilet Toilet # Voids 2 1 - Labs CBC & Chem 7: 11/03/22 07:03 11/05/22 07:27 Labs: Abnormal Lab Results - Last 24 Hours (Table) 11/04/22 11/04/22 11/05/22 Range/Units 16:46 19:58 05:33 Chloride (96-109) mmol/L Anion Gap (4.00-12.00) mmol/L Glucose (70-110) mg/dL POC Glucose (mg/dL) 204 H 158 H 118 H (70-110) mg/dL 11/05/22 11/05/22 Range/Units 07:27 12:01 Chloride 93 L (96-109) mmol/L Anion Gap 12.70 H (4.00-12.00) mmol/L Glucose 125 H (70-110) mg/dL POC Glucose (mg/dL) 225 H (70-110) mg/dL Assessment and Plan Time with Patient: Less than 30
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
--- NOTE | 2022-11-05 15:08 | P.DS ---
Providers Date of admission: 10/31/22 09:17 Expected date of discharge: 11/05/22 Attending physician: Sixto Roca DO Consults: 10/31/22 08:22 Consult Physician Stat Consulting Provider: Matty King Reason/Comments: Medical management and clearance for kyphoplasty versus stabilization Primary care physician: [facility] Course: Hospital Course: The patient was evaluated preoperatively and found to have the diagnosis of L1 vertebra fracture. They underwent appropriate preoperative care and were willing to undergo the intended procedure. They underwent a successful T12-L2 stabilization with L1 kyphoplasty, were recovered appropriately and sent to the floor. While on the floor they worked with physical therapy, occupational therapy and nursing to enhance their recovery experience. Their pain was well controlled through their stay and they were started on appropriate medications, DVT ppx modalities, activity and dietary needs. Daily labs were monitored closely, and transfusions were only used when necessary. Medicine as well as other consulting services have made their input and have helped with our team approach and multidisciplinary care. PT milestones have been met and passed and they have made the recommendation of home with home care for this patient and treating providers agree with this care path. The patient will be discharged home with appropriate medications, instructions and follow-up information and in stable condition. Patient Condition at Discharge: Stable Plan - Discharge Summary Discharge Rx Participant: Yes New Discharge Prescriptions: New Furosemide [Lasix] 20 mg PO DAILY #30 tab Potassium Chloride ER [K-Dur 10] 10 meq PO DAILY #30 tab Continue glipiZIDE XL [Glucotrol XL] 5 mg PO BID Famotidine [Pepcid] 20 mg PO BID metFORMIN HCL ER [Glucophage XR] 1,000 mg PO W/SUPPER HYDROcodone/APAP 5-325MG [Hodges 5-325] 1 tab PO Q6H PRN PRN Reason: Pain Pioglitazone [Actos] 15 mg PO DAILY lisinopriL [Zestril] 10 mg PO DAILY Atorvastatin [Lipitor] 40 mg PO HS Discharge Medication List Atorvastatin [Lipitor] 40 mg PO HS 10/31/22 [History] Famotidine [Pepcid] 20 mg PO BID 10/31/22 [History] HYDROcodone/APAP 5-325MG [Hodges 5-325] 1 tab PO Q6H PRN 10/31/22 [History] Pioglitazone [Actos] 15 mg PO DAILY 10/31/22 [History] glipiZIDE XL [Glucotrol XL] 5 mg PO BID 10/31/22 [History] lisinopriL [Zestril] 10 mg PO DAILY 10/31/22 [History] metFORMIN HCL ER [Glucophage XR] 1,000 mg PO W/SUPPER 10/31/22 [History] Furosemide [Lasix] 20 mg PO DAILY #30 tab 11/05/22 [Rx] Potassium Chloride ER [K-Dur 10] 10 meq PO DAILY #30 tab 11/05/22 [Rx] Follow up Appointment(s)/Referral(s): Damien Light MD [STAFF PHYSICIAN] - 1-2 Days Murtaza Whiteside III, MD [Primary Care Provider] - 1-2 days Susana Rand MD [REFERRING] - 1-2 Days [facility], [NON-STAFF] - 1 Week ([facility] will call you to arrange a visit) Sixto Roca DO [Doctor of Osteopathic Medicine] - 2 Weeks Ambulatory/Diagnostic Orders: Basic Metabolic Panel [LAB.AMB] Time Frame: 3 Days, Location: None Selected Complete Blood Count w/diff [LAB.AMB] Time Frame: 3 Days, Location: None Selected Activity/Diet/Wound Care/Special Instructions: Spine Discharge and Recovery Instructions Date of Surgery: 11/01/2022 Diagnosis: L1 compression fracture Procedure: T12-L2 stabilization with L1 kyphoplasty Medications: See medication list All medication refills should be obtained through your primary care doctor or your clinic spine surgeon. Please discuss prescription refills at your follow up appointment. Do not call the hospital for medication refills. Dressing: Leave your dressing in place for a total of 5 days post operatively. Then you may remove your dressing and leave open to air. Keep the area clean and if not able to keep area clean, then cover with sterile gauze and tape. Showering: You may shower 3 days after your procedure allowing soap and water to run over incision. Do not scrub. Do not soak. Blot dry. Follow up: Please confirm a follow up appointment with your surgeon 3 weeks post operatively. Please make an appointment to follow up with your PCP in 1-2 weeks after surgery for evaluation 3 phase, 3-week plan POST OP WEEKS 1-3 1. Lifting/carrying/pushing/pulling limited to less than 5 pounds. 2. Do not sit for longer than 15 minutes at one time. Get up and walk around. Prolonged sitting is NOT advised. If you lay down, see if you can tolerate laying down on you front (belly side) 3. Walk for periods of 15 minutes = 1 mile but no longer; do it multiple times times each day. 4. Ice your low back after activity. POST OP WEEKS 3-6 1. Lifting limited to less than 20 pounds. 2. Do not sit for longer than 30 minutes at a time. Frequently change positions. Use a sit-to stand workstation or take frequent breaks from sitting if you have returned to work. 3. Walk for 30 minutes each day. If possible, do these three or more times a day POST OP WEEKS 6+ At your 6-week appointment we will give you a physical therapy referral to focus on a core stabilization and strengthening program. You should also work on leg & buttock strengthening, hamstring & quadriceps stretching, and continue a low impact aerobic activity program such as swimming, walking, or riding a stationary bicycle. During the initial 6 weeks after your surgery, you are at the highest risk of re-injuring your spine. You should generally avoid BLTs (bending, lifting and twisting combination motions) and follow the above guidelines to reduce the nam ce of reinjury. You can anticipate post op appointments in our office at approximately 3 weeks and 6 weeks after your surgery. INCISION CARE: If your incision is not draining you do NOT need to cover it with a dressing. Keep your incision clean, dry and intact. In most cases, we apply skin glue, connie or sutures to the incision at the time of surgery. This will be like a crust or have the appearance of a scab and will fall off in time on its own. The stitches or connie need to be removed at 3 weeks post op appointment. You may begin to shower 3 days after surgery (this allows the glue to padilla well). However, please avoid scrubbing the incision site or peeling off any of the skin glue. This will ensure optimal healing of your incision. Also, during this time avoid soaking the incision area in water - this includes swimming pools, hot tubs or baths. No ointments, lotions or oils on the incision until your surgeon allows. Leave connie, sutures or glue in place. Neurological dysfunction that comes on suddenly can also be a sign of a stroke. Below some common symptoms of a stroke are listed: B - balance difficulty such as sudden onset walking or leaning to one side - NEW E - eye problem such as sudden double vision or trouble seeing on one side - NEW F - Facial weakness or numbness on one side - NEW A - Arm or leg weakness or numbness on one side - NEW S - Slurred speech or difficulty with word finding - NEW T - Time is BRAIN! Call 911 as soon as you recognize these symptoms Diet: Consume a regular diet rich in vegetables and lean protein such as chicken or fish. You should consume in a ratio of approximately 20% fats|40% carbohydrates|40%protein. Vegetables, sweet potatoes, brown rice or quinoa are examples of good carbohydrates. Chips, white bread, cookies and sweets/sugar are examples of bad carbohydrates. Limit your bad carbs, go wild with good carbs. "Life's Simple 7" Guidelines as per [employer] [place] [employer] These will help you reclaim your life after surgery and pan devulcanizer helper in your recovery, keeping in mind your restrictions. (1) Get Active. Physical activity can help people lose weight, control high blood pressure and cholesterol, feel emotionally better, and sleep better. (2) Control Cholesterol. Avoid a diet high in saturated fat, trans fat, & cholesterol. Limit whole milk & cream, ice cream, butter, egg yolks, processed meats (like sausage and hot dogs), and fatty meats. Choose healthy foods that are low in saturated fat, trans fat and cholesterol which include: Fruits and vegetables, fiber rich grain products (like whole grain pasta and brown rice), lean meat such as chicken, fish, nuts, seeds, and legumes. (3) Eat Better. Eat small portions. Shop at the grocery with a list and do not stray from it. Tips for a healthy diet include: Limit sodium intake to less than 1500mg daily, avoid prepackaged, processed, and fast foods, choose a diet rich in fruits, vegetables, and whole grain, high fiber foods, and limit saturated & cholesterol in your diet. (4) Manage Blood Pressure. If you have high blood pressure, you should have a cuff at home so that you can check your blood pressure regularly. Be sure you have a good cuff. An arm one is generally better than a wrist one. Bring the cuff to a doctor's appointment to validate that the measurements that your cuff are taking are accurate. Take your blood pressure twice daily when you are sitting down and relaxing. Record the numbers in a log and bring this log with you to your doctors' appointments. (5) Lose Weight if your BMI is above 25. A healthy BMI is between 19-25. To calculate Your BMI, you may use a Standard BMI Calculator on the NIH BMI website: <www.nhlbi.nih.gov/guidelines/obesity/BMI/bmicalc.htm>. Weigh oneself daily. If you are overweight, set a goal to lose weight. A pound a week loss if needed is a good target. (6) Reduce Blood Sugar. Limit foods and liquids with "added sugars." (Added sugars include sucrose, fructose, glucose, maltose, dextrose, high fructose corn syrup, corn syrup, concentrated fruit juice and honey). (7) Stop Smoking. If you smoke, quitting smoking is one of the best things that you can do for your health. Smoking increases your risk of heart attack, stroke, and peripheral vascular disease, which is a build-up of plaque in your arteries. Please discard all the cigarettes and lighters in your house. Have a plan for what you will do when you have the urge to smoke. Direct and second- hand smoke shortens your life as well as the lives of your family, friends and others around you. For your health and the health of those around you, please consider quitting! Proper Bending Body Mechanics: Maintain a wide stance with one foot slightly in front of the other. Keep your back straight. Bend utilizing the strength in your hips and knees. Do not bend at the waist. Maintain the lifted object at your waist-level close to your body. Avoid lifting weight that causes immediately pain or pain anywhere in the body afterwards. Smoking/Nicotine If there was ever one thing that you could do to increase your overall health, decrease your risk of cardiovascular problems by about 39% the second you make the choice, it is to STOP SMOKING. Your body's most instant gratification is the second you stop smoking. We have all heard the studies, read the articles but it is true, smoking is extremely bad for your overall health, and moreover it is detrimental to your bone health. Nicotine, IN ANY FORM, kills bone cells, prevents your body from healing fractures, and significantly prolongs healing after surgery. In spine surgery specifically, it increases your risk of not healing your bones to create a fusion and increases your risk of having a revision surgery due to this up to 60%. I know it is hard. I know it feels impossible. But there are ways. Take control of your life. We are here to help you through it. And when you are ready, ask us and we can direct you to help if you desire. Use the START Plan to Quit Smoking (please visit the Helpguide.org website listed below for more information): S = Set a quit date. Choose a date within the next 2 weeks, so you have enough time to prepare without losing your motivation to quit. If you mainly smoke at work, quit on the weekend, so you have a few days to adjust to the change. T = Tell family, friends, and co-workers that you plan to quit. Let your friends and family in on your plan to quit smoking and tell them you need their support and encouragement to stop. Look for a quit marcos who wants to stop smoking as well. You can help each other get through the rough times. A = Anticipate and plan for the challenges you'll face while quitting. Most people who begin smoking again do so within the first 3 months. You can help yourself make it through by preparing ahead for common challenges, such as nicotine withdrawal and cigarette cravings. R = Remove cigarettes and other tobacco products from your home, car, and work. Throw away all your cigarettes (no emergency pack!), lighters, ashtrays, and matches. Wash your clothes and freshen up anything that smells like smoke. Shampoo your car, clean your drapes and carpet, and steam your furniture. T = Talk to your doctor about getting help to quit. Your doctor can prescribe medication to help with withdrawal and suggest other alternatives. If you can't see a doctor, you can get many products over the counter at your local pharmacy or grocery store, including the nicotine patch, nicotine lozenges, and nicotine gum. Resources for Quitting Smoking: <https://www.[place].gov/docum ents/mdc/Quit_Tobacco_Resources_for_patients_313480_7.pdf> Supplementation: Take recommended dosages of Vitamin D and Calcium to help fortify your bones and help them to heal. See your health maintenance packet for dosages and recommended levels. DVT/VTE prophylaxis: You will be given compression stockings from the hospital. Wear these daily for the first two weeks after surgery. You may take them off at night. You may be prescribed a medication to help thin your blood. Take this as directed. If you are not prescribed this medication, early and frequent ambulation has been shown to be the best prophylaxis to deep vein thrombosis and sequelae related to this event. Recommend to establish care with a new PCP, On your discharge there are some family practice providers recommended to you. Discharge Disposition: HOME WITH HOME HEALTH SERVICES
[2022-11-05] MEDS ORDERED: glipiZIDE 5 MG TAB PO SCH (17:30)
[2022-11-05] MEDS ORDERED: metFORMIN 500 MG TAB PO SCH (17:30)
[2022-11-05] MEDS ORDERED: INSULIN DETEMIR (LEVEMIR) 100 UNIT/ML SYR SQ SCH (21:00)
== END 2022-11-05 16:07 | disposition home health service (06) | DRG 479 ==
LOC: EC 07:23 → 4SSUR 09:17
PROVIDERS: ADMIT Orthopaedic Surgery; ATTEND Orthopaedic Surgery
PROC: 0PH404Z Insertion of Internal Fixation Device into Thoracic Vertebra, Open Approach (ICD-10-PCS; 2022-11-01)
PROC: 8E0WXBZ Computer Assisted Procedure of Trunk Region (ICD-10-PCS; principal; 2022-11-01 07:30)
PROC: 0QB00ZX Excision of Lumbar Vertebra, Open Approach, Diagnostic (ICD-10-PCS; principal; 2022-11-01 07:30)
PROC: XNU0356 Supplement Lumbar Vertebra with Mechanically Expandable (Paired) Synthetic Substitute, Percutaneous Approach, New Technology Group 6 (ICD-10-PCS; principal; 2022-11-01 07:30)
PROC: 0QH004Z Insertion of Internal Fixation Device into Lumbar Vertebra, Open Approach (ICD-10-PCS; 2022-11-01 07:30)
DX: S32.010A Wedge compression fracture of first lumbar vertebra, initial encounter for closed fracture (principal); Z00.6 Encounter for examination for normal comparison and control in clinical research program; M48.00 Spinal stenosis, site unspecified; M47.816 Spondylosis without myelopathy or radiculopathy, lumbar region; M47.26 Other spondylosis with radiculopathy, lumbar region; R53.81 Other malaise; E11.9 Type 2 diabetes mellitus without complications; V49.9XXD Car occupant (driver) (passenger) injured in unspecified traffic accident, subsequent encounter; E78.5 Hyperlipidemia, unspecified; I10 Essential (primary) hypertension; W18.30XA Fall on same level, unspecified, initial encounter; R09.02 Hypoxemia; Z79.84 Long term (current) use of oral hypoglycemic drugs; Z79.899 Other long term (current) drug therapy; Z90.49 Acquired absence of other specified parts of digestive tract
CPT/HCPCS: 71045; 71046; 72100; 72128; 72131; 80048; 80053; 83036; 84145; 85025; 85027; 86850; 86900; 86901; 88307; 88311; 93005; 99285